=== PATIENT | male | born 1990 | race Caucasian/White ===

== ENCOUNTER 2018-07-07 15:38 | Emergency (ER) | payer OTHER ==
[2018-07-07] MEDS: predniSONE 20 MG TAB PO (17:09)
[2018-07-07] MEDS: ALBUTEROL 0.083% (NEB) 2.5 MG/3 ML AMP HHN (17:14)
[2018-07-07] MEDS: IPRATROPIUM (NEB) 0.5 MG/2.5 ML AMP HHN (17:14)
== END 2018-07-07 18:39 | disposition home or self-care (01) ==
LOC: FTE 15:38
DX: R06.02 Shortness of breath (principal); Z77.098 Contact with and (suspected) exposure to other hazardous, chiefly nonmedicinal, chemicals; Z87.891 Personal history of nicotine dependence
CPT/HCPCS: 71045; 94664; 99283-25